=== PATIENT | male | born 1950 | race Caucasian/White ===

== ENCOUNTER → 2018-04-24 14:48 | Outpatient (CLI) | payer OTHER, SELFPAY ==
--- NOTE | 2018-04-24 14:58 | MRI_ITS ---
STUDY: MRI BRAIN WITH AND WITHOUT CONTRAST (ATTENTION INTERNAL AUDITORY CANALS - I.A.C.'s) REASON FOR EXAM: Male, 68 years old. ATAXIA, L HEARING LOSS OVER FEW YEARS. TECHNIQUE: Standardized multiplanar fat and water weighted pulse sequences were obtained. Gadavist 9 IV was administered for the contrast portion of the examination. COMPARISON: None. FINDINGS: Normal bilateral temporal bones. Normal bilateral internal auditory canals. There is no demonstrated intracanalicular or cisternal vestibular schwannoma (acoustic neuroma). There is no enhancement of the bilateral VIIth or VIIIth cranial nerves. Normal bilateral cochlea, vestibules and semicircular canals. Normal size of the ventricles and extra-axial spaces for the patient's age. Normal white matter tracts of the supratentorial brain. Normal bilateral basal ganglia. Normal thalami. Normal flow voids within the major intracranial circulation suggesting patency by spin echo criteria. Normal venous enhancement. There is no enhancing intra-axial or extra-axial abnormality. There is no extra-axial fluid accumulation. Normal sella turcica, pituitary gland, infundibular stalk, optic chiasm and hypothalamus. Normal tectal plate and pineal gland. Normal midbrain, vijaya and medulla. Normal cerebellum. Normal basal cisterns. No demonstrated orbital abnormality, within the constraints of a routine brain study. Normal visualized paranasal sinuses. Normal calvarium and skull base. Normal visualized soft tissue structures. Normal visualized upper cervical spine. MRI/Brain W/WO Contrast IMPRESSION: Unremarkable unenhanced and enhanced MRI of the bilateral internal auditory canals (I.A.C's). Electronically Signed: Mary Ann Lewis MD at 9:33 EST Tel , Service support ,
[2018-04-24 15:56] LABS: CREATININE FINGERSTICK 1.1 mg/dL (0.70-1.30); EGFR FINGERSTICK > 60.0000 mL/min (>60)
== END ==
PROVIDERS: Family Provider Internal Medicine; PCP Internal Medicine; Referring Provider Otolaryngology Otolaryngology/Facial Plastic Surgery; Visit Provider Otolaryngology Otolaryngology/Facial Plastic Surgery
DX: R27.0 Ataxia, unspecified (principal); H93.19 Tinnitus, unspecified ear; H91.92 Unspecified hearing loss, left ear
CPT/HCPCS: 70553; A9585

== ENCOUNTER 2019-07-26 23:33 | Observation (INO) | payer OTHER, SELFPAY ==
[2019-07-26 23:34] VITALS: BP 131/63; PULSE 84; RESP 16; TEMP 36.6; O2SAT 96; BMI 26.7
[2019-07-27] VITALS (8 sets, daily range): BP systolic 122–135; BP diastolic 81–93; PULSE 71–84; RESP 18; TEMP 36.7–36.9; O2SAT 90–96; BMI 26.4
--- NOTE | 2019-07-27 | RAD_ITS ---
STUDY: X-RAY - UNILATERAL RIBS ( RIGHT ) WITH CHEST REASON FOR EXAM: Male, 69 years old. NKI -- C/O OF KNOT BELOW RT SCAPULA THAT MAKES HIM UNABLE TO TAKE IN A DEEP BREATH WITHOUT PAIN TECHNIQUE - RIBS: 4 view(s) of the ribs. TECHNIQUE - CHEST: Single frontal view of the chest. COMPARISON: None. FINDINGS - RIBS: Normal visualized ribs without a demonstrated fracture. FINDINGS - CHEST: Bilateral basilar interstitial prominence somewhat pleural-based in the right base possible atelectasis in the right base, retrocardiac density likely moderate to large hiatal hernia. There is no demonstrated pleural abnormality. Normal size heart. Normal mediastinum and german. Normal visualized pulmonary arteries. There is atherosclerosis of the aortic arch. There is a levoscoliosis of the upper thoracic spine. Normal visualized ribs, clavicles, and shoulders. There is no demonstrated abnormality of the visualized soft tissue structures of the upper abdomen. RAD/Ribs Uni Min 3V w/PA Chest IMPRESSION: RIBS: Normal x-ray examination of the ribs. CHEST: Interstitial disease in the lung bases, possible chronic, component of atelectasis suspected. Follow-up examination to assess for resolution of pleural-based airspace disease in the right base is recommended which then wouldn''t drink any need for cross-sectional imaging if not achieved. An inflammatory process is not excluded. This may cause patient''s symptoms. Moderate to large sized hiatal hernia. Electronically Signed: Brina Moore MD at 0:30 EDT , Service support ,
--- NOTE | 2019-07-27 00:07 | ED.VISSUMM ---
- ER Visit Summary Date of Service: 07/27/19 Chief Complaint: Back pain History of Present Illness: The patient is a 69 M presenting with right upper back pain. 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 This involved a lot of movement with his right upper extremity. He states he is very active typically but this was more work than usual. He has pain when he takes a deep breath and with movements. He denies chest pain or shortness of breath. Denies PE/DVT risk factors. Denies other complaints. Physical Examination: Vitals are stable. Patient is afebrile. Alert no acute distress. HEENT exam is unremarkable. Neck is supple. Lungs are clear and equal bilaterally. Heart is regular rate and rhythm. Abdomen is soft nontender nondistended. Back right posterior rib tenderness below scapula. No crepitus. Extremities are unremarkable. Skin is warm and dry. No focal neurologic deficit. Remainder of exam is unremarkable. Emergency Department Course and Treatment: Patient was given Norflex, Toradol IM. Right rib series shows RIBS: Normal x-ray examination of the ribs. CHEST: Interstitial disease in the lung bases, possible chronic, component of atelectasis suspected. Follow-up examination to assess for resolution of pleural-based airspace disease in the right base is recommended. D dimer 2.39. CTA chest was ordered and is pending. Patient is feeling improved on reevaluation. He will be sent home with Flexeril if his CTA is negative. He will follow-up with his primary care physician. Disposition: pending Impression: Acute back pain This note was generated with [employer] dictation software. It may contain incorrect words, spelling, and punctuation that were not noted in review of the chart prior to signing ED Disposition - Plan for ED Patient: Instructions: ED Back Pain Acute or Chronic Prescriptions: cycloBENZAPRine HCl [Flexeril] 10 mg PO TID PRN #20 tab PRN Reason: Muscle Spasm Prescription Printed Referrals: Wade Lindquist MD [Primary Care Provider] -
[2019-07-27] MEDS: Ketorolac 30 MG/ML Syringe IM (00:19)
[2019-07-27] MEDS: Orphenadrine 60 MG/2 ML Ampul IM (00:20)
--- NOTE | 2019-07-27 00:40 | ED.DEP ---
ED Disposition - Plan for ED Patient: Instructions: ED Back Pain Acute or Chronic Prescriptions: cycloBENZAPRine HCl [Flexeril] 10 mg PO TID PRN #20 tablet PRN Reason: Muscle Spasm Referrals: Wade Lindquist MD [Primary Care Provider] -
[2019-07-27 00:44] LABS: D-Dimer Quantitative (DVT/PE) 2.39 FEU/ug/m (0.27-0.49)
--- NOTE | 2019-07-27 00:45 | ED.RN ---
dr mckee notified of the pts ddimer 2.39
--- NOTE | 2019-07-27 00:49 | CT_ITS ---
We are attempting to reach an attending provider to discuss findings. An addendum with communication details will be sent when the communication is complete. STUDY: CTA CHEST REASON FOR EXAM: Male, 69 years old. SHARP PAIN IN RT BACK AND RIBS/E LEV DDIMER RADIATION DOSAGE (If Supplied By Facility): CTDIvol = ( 12.18 ) mGy, DLP = ( 463.15 ) mGycm TECHNIQUE: The examination was performed with the intravenous administration of Isovue 370 100ml. Post-processing of the angiographic images was performed, with multiplanar reformation and 3D reconstruction. Individualized dose optimization techniques were used for this CT. COMPARISON: Right rib series 07/27/2019 FINDINGS: Filling defects in the right pulmonary artery predominantly involving the right middle lobe and less lower lobe pulmonary artery which is mostly occlusive to the right middle lobe. Nonocclusive filling defects within the left inferior pulmonary artery. There is no demonstrated pulmonary embolism. Normal thoracic aorta and visualized great vessels. There is no demonstrated aortic dissection. Normal heart and pericardium. There are calcifications of the coronary arteries. Left ventricular wall appears thickened. Mild contrast reflux into the inferior vena cava which appears dilated at the radial right atrial confluence with heterogeneous enhancement. Normal mediastinum. Normal hilar regions. Normal visualized trachea and bronchi. The lungs are well expanded. Hazy peripheral airspace disease in the right middle lobe, linear changes in the right upper lobe just superior to the minor fissure, in the right lower lobe likely atelectasis with mild airspace opacification in the right lower lobe superior segment adjacent to the fissure and is along the dependent right lower lobe. Hazy airspace disease in the left lower lobe adjacent to the large hiatal hernia and lung periphery superior segment. Indistinct protocol contour and trace pleural fluid in the lung bases.. Normal chest wall structures. There are degenerative changes of thoracic spine. There is a large hiatal hernia composed mostly of the fundus of the stomach. There are colonic diverticula. CT/CTA Chest W/WO Contrast IMPRESSION: The lateral pulmonary emboli, most pronounced in the right middle lobe which is mostly occlusive. There is volume loss with peripheral airspace disease in the right middle lobe, less right and left lower lobe. Infarction may be present. Heterogeneous enhancement of the dilated inferior vena cava, this may be due to mixing of contrast. Further assessment to exclude thrombus recommended. Coronary artery disease. Mild left ventricular wall thickening. Large hiatal hernia. No thoracic aortic aneurysm, dissection or leak. Other nonacute findings as outlined above. Electronically Signed: Brina Moore MD at 2:00 EDT , Service support ,
[2019-07-27 01:38] LABS: International Normalized Ratio 1.1; Partial Thromboplast Time 28.7 Seconds (24.1-36.2); Prothrombin Time (Protime)PT. 13.7 SECONDS (11.7-14.9)
[2019-07-27 01:59] LABS: Hematocrit 39.4 % (40-54); Mean Corpuscular Hgb 31.6 pg (27.0-32.0); Mean Corpuscular Volume 95.6 fL (80-94); Mean Platelet Vol. 9.9 fl (6.2-12.0); Platelet Count 193 K/mm3 (150-450); RBC Distribution Width CV 18.5 % (11.6-14.6); RBC Distribution Width SD 64.2 fl (35.1-43.9); Red Blood Count 4.12 M/mm3 (4.6-6.2); White Blood Count 6.9 K/mm3 (4.4-11.0)
[2019-07-27 02:01] LABS: Scan Indicated on CBC? Y/N NO
[2019-07-27 02:12] LABS: Anion Gap 6 (5-15); BUN 27 mg/dL (7-18); BUN/Creat Ratio 32.2 RATIO (10-20); Calcium,Total 8.1 mg/dL (8.5-10.1); Chloride 110 mmol/L (98-107); Creatinine, Serum 0.84 mg/dL (0.70-1.30); EST Glomerular Filtration Rate 97 mL/min (>60); Est Glom Filt Rate - Afr Amer 117 mL/min (>60); Estimated Creatinine Clearance 90.89 ml/min; Glucose 111 mg/dL (74-106); Sodium Level 139 mmol/L (136-145)
--- NOTE | 2019-07-27 02:13 | EKG12_ITS ---
Test Reason : DYSRHYTHMIA Blood Pressure : / mmHG Vent. Rate : 073 BPM Atrial Rate : 073 BPM P-R Int : 170 ms QRS Dur : 098 ms QT Int : 426 ms P-R-T Axes : 009 -11 003 degrees QTc Int : 469 ms Normal sinus rhythm Normal ECG Confirmed by CESAR MONROY MD ([id number]), newspaper or periodical editor RAFAEL CHÁVEZ ([id number]) on 07/28/2019 9:13:33 AM Referred By: DANIEL Confirmed By:CESAR MONROY MD
--- NOTE | 2019-07-27 02:25 | ED.RN ---
NO OLD EKGS IN MUSE
[2019-07-27] MEDS: Enoxaparin 100 MG/ML Syringe 90 MG SC (02:47)
--- NOTE | 2019-07-27 02:50 | PCM.HP.STD ---
Problem List (1) Pulmonary embolism Status: Acute Qualifiers: Chronicity: acute History of Present Illness Date of Admission: 07/27/19 Chief Complaint: acute back pain The patient is a 69 year old male patient with no significant past medical history presents the emergency room with acute back pain. 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 The pain started to get worse and he associated it was increasing shortness of breath. No fevers or chills no nausea vomiting or diarrhea. The patient denies history of blood clot. D-dimer was markedly elevated therefore CTA chest was done and found to have substantial area of the right middle lobe pulmonary embolism and could not rule out infarction. This blood clot was unprovoked, the patient has no previous diagnosis of DVT or cancer, or hypercoagulable state. The patient denies any sedentary activity such as prolonged car ride or airplane ride. He is a non-smoker. He will be admitted to PCU for overnight monitoring and pain control. Past Medical History Allergies No Known Allergies Allergy (Verified 07/26/19 23:35) Home Medications: Ambulatory Orders Medication Instructions Recorded Escitalopram Oxalate [Lexapro] 10 mg PO DAILY 07/26/19 Ferrous Gluconate [Iron] 240 mg PO DAILY 07/26/19 Multivitamin with Minerals 1 ea PO DAILY 07/26/19 [Multiple Vitamin] cycloBENZAPRine HCl [Flexeril] 10 mg PO TID PRN #20 tab 07/27/19 Smoking Status: Never smoker - *Family History Maternal History Items: No pertinent history Review of Systems Constitutional: Denies: Chills, Fever, Weight Change HEENT: Denies: Head Aches, Sinus Congestion, Sinus Drainage Cardiovascular: Denies: Chest Pain, Palpitations Respiratory: Reports: Shortness of Breath. Denies: Cough, Sputum production Gastrointestinal: Denies: Abdominal Pain, Nausea, Vomiting Genitourinary: Denies: Dysuria Musculoskeletal: Reports: Back Pain. Denies: Joint Pain, Joint Tenderness Skin: Denies: Rash, Wounds Neurological: Denies: Numbness, Tingling, Focal weakness Psychiatric: Denies: Anxiety, Depression, Homicidal Ideations, Suicidal Ideations Hematologic/ Lymphatic: Denies: Easy Bruising, Easy Bleeding VTE Information - Inpt Only VTE Present on Admission: Yes VTE Mechan Device Prophylaxis: None VTE Pharm Prophylaxis ordered?: Yes Patient Problems: Active and Suspected Problems Pulmonary embolism (Acute) - Physical Exam Vitals/I&O's: Vital Signs Temp Pulse Resp BP Pulse Ox 97.8 F 84 16 131/63 H 96 07/26/19 23:34 07/26/19 23:34 07/26/19 23:34 07/26/19 23:34 07/26/19 23:34 Oxygen Delivery Method Room Air Weight: 191 lb 9.307 oz Body Mass Index (BMI) 26.7 General: Alert, Oriented x3, Cooperative HEENT: Atraumatic, Normocephalic Neck: Supple Lungs: Clear to auscultation, Normal air movement Cardiovascular: Regular rate, Normal S1, Normal S2, No murmurs Abdomen: Bowel Sounds Present Extremities: No edema, - - neg homans test Skin: No rashes Musculoskeletal: No Tenderness to Palpation of Joints or Extremities Neurological: Neuro grossly intact Psych/Mental Status: Normal Affect, Appropriate Laboratory Results 07/27/19 00:23: D-Dimer Quant (PE/DVT) 2.39 H* 07/27/19 00:23: PT 13.7, INR 1.1, APTT 28.7 07/27/19 01:30: WBC 6.9, RBC 4.12 L, Hgb 13.0, Hct 39.4 L, MCV 95.6 H, MCH 31.6, MCHC 33.0, RDW Std Deviation 64.2 H, RDW Coeff of Kit 18.5 H, Plt Count 193, MPV 9.9 07/27/19 01:30: Sodium 139, Potassium 4.0, Chloride 110 H, Carbon Dioxide 23.0, Anion Gap 6, BUN 27 H, Creatinine 0.84, Estim Creat Clear Calc 90.89, Est GFR (MDRD) Af Amer 117, Est GFR (MDRD) Non-Af 97, BUN/Creatinine Ratio 32.2 H, Glucose 111 H, Calcium 8.1 L 07/27/19 02:30: Protein C Antigen Pending, Functional Protein C Pending, Prot C Funct Activity Pending, Antithrombin III Ag Pending, Func Antithrombin III Pending, Factor V Leiden Mutat Pending, Beta-2-GPI IgG Ab Pending, Beta-2-GPI IgA Ab Pending, Beta-2-GPI IgM Ab Pending, Anti-Cardiolipin IgG Ab Pending, Anti-Cardiolipin IgM Ab Pending, Factor II DNA Analysis Pending Assessment/Plan All Active Problems Pulmonary embolism (Acute) Plan 1. Acute pulmonary embolism/possible infarction of lung tissue?patient is stable with an pulse ox saturation of 96% and is not currently in respiratory distress. Oxygen will be used per protocol as needed. The patient was given a dose of Lovenox 1 mg/kg in the emergency room and I will order Eliquis 5 mg p.o. twice daily. A hypercoagulable work-up was initiated in the emergency room to look for underlying cause of this pulmonary embolism that seems to be unprovoked. I did discuss with the patient the possible causes of pulmonary embolism including sedentary lifestyle, hypercoagulable states, cancer. The patient will be given morphine as needed for his pain. If the pain is controlled and his breathing status remains stable perhaps he may be discharged later to continue the rest of the work-up as an outpatient. 2. DVT T prophylaxis?patient already has pulmonary embolism and is starting anticoagulation at this time OBSV E&M: [id number] Initial observation care L2
[2019-07-27] MEDS: Acetaminophen 325 MG Tablet 650 MG PO (05:43)
[2019-07-27] MEDS: APIXABAN 5 MG TABLET PO ×2 (10:11→12:53)
[2019-07-27] MEDS: Multivitamins,Ther W-Minerals Tablet 1 TABLET PO (10:12)
[2019-07-27] MEDS: Escitalopram Oxalate 10 MG Tablet PO (10:12)
[2019-07-27] MEDS: Ferrous Gluconate 324 MG Tablet 325 MG PO (10:12)
--- NOTE | 2019-07-27 11:46 | CASEMGMT ---
Addendum entered by Senia Dillard 07/27/19 12:53: Call to the pharmacist at [facility] pharmacy and she states that pt's co-pay for Eliquis is $164.03, which most likely is partly deductible per pharmacist. Pt updated and provided with Eliquis co-pay card at this time, voices understanding. Pt voices no further questions/concerns/needs at this time. Abi GUPTA CM Original Note: Pt to be sent home on Eliquis at discharge. Pharmacy entered for pt at this time and med to be e-scribed to [facility] [place], then this CANDY BRUSH to call and check coverage/co-pay. Abi GUPTA CM
--- NOTE | 2019-07-27 12:01 | PCM.DC ---
- Discharge Diagnoses Current Active Problems: Current Active and Chronic Problems Pulmonary embolism (Acute) You will use the following diet at home:: No restrictions Discharge Activity: Return to Normal Activity Call your doctor if you observe: Shortness of breath, Dizziness, Fainting spells, Chest pain Instructions: ED Back Pain Acute or Chronic Allergies/Adverse Reactions: Allergies No Known Allergies Allergy (Verified 07/26/19 23:35) Medications to take at Discharge Escitalopram Oxalate [Lexapro] 10 mg PO DAILY 07/26/19 Ferrous Gluconate [Iron] 240 mg PO DAILY 07/26/19 Multivitamin with Minerals [Multiple Vitamin] 1 ea PO DAILY 07/26/19 Apixaban [Eliquis] 10 mg PO BID #70 tab 07/27/19 The following prescriptions were given: Apixaban [Eliquis] 10 mg PO BID #70 tab Transmission Status: Pending to [facility]/pharmacy #[id number] Primary Care Physician: Wade Lindquist MD [Primary Care Provider] - Please follow up with your Primary Care Physician in: 3-5 days Test Results: Test results from this visit will be discussed in further detail at your follow-up appointment, if applicable. Proposed Discharge Date: 07/27/19
--- NOTE | 2019-07-27 12:01 | PCM.DC.SUM ---
<Martha Ellis - Last Filed: 07/27/19 12:08> Discharge Date and Diagnosis Date of Admission: 07/27/19 Date of Discharge: 07/27/19 - Primary Discharge Diagnosis Acute Problems: Active Problems 1. Acute pulmonary embolism 2. Depression Hospital Course and Treatment Imaging Results: Diagnostic Data Ribs w/Chest X-Ray 07/27/19 00:00 IMPRESSION: RIBS: Normal x-ray examination of the ribs. CHEST: Interstitial disease in the lung bases, possible chronic, component of atelectasis suspected. Follow-up examination to assess for resolution of pleural-based airspace disease in the right base is recommended which then wouldn''t drink any need for cross-sectional imaging if not achieved. An inflammatory process is not excluded. This may cause patient''s symptoms. Moderate to large sized hiatal hernia. Electronically Signed: Brina Moore MD at 0:30 EDT , Service support , Chest CTA 07/27/19 00:49 IMPRESSION: The lateral pulmonary emboli, most pronounced in the right middle lobe which is mostly occlusive. There is volume loss with peripheral airspace disease in the right middle lobe, less right and left lower lobe. Infarction may be present. Heterogeneous enhancement of the dilated inferior vena cava, this may be due to mixing of contrast. Further assessment to exclude thrombus recommended. Coronary artery disease. Mild left ventricular wall thickening. Large hiatal hernia. No thoracic aortic aneurysm, dissection or leak. Other nonacute findings as outlined above. Electronically Signed: Brina Moore MD at 2:00 EDT , Service support , ADDENDUM: 07/27/19 0303 IMPRESSION: The lateral pulmonary emboli, most pronounced in the right middle lobe which is mostly occlusive. There is volume loss with peripheral airspace disease in the right middle lobe, less right and left lower lobe. Infarction may be present. Heterogeneous enhancement of the dilated inferior vena cava, this may be due to mixing of contrast. Further assessment to exclude thrombus recommended. Coronary artery disease. Mild left ventricular wall thickening. Large hiatal hernia. No thoracic aortic aneurysm, dissection or leak. Other nonacute findings as outlined above. N.B. : The above information has been verbally conveyed by Brina Moore MD to Dr. Eleno MD, on 07/27/2019 02:56:03 (ET). Electronically Signed: Brina Moore MD at 2:00 EDT , Service support , Operations: None Procedures: None Summary of Care Provided: The patient is a 69 year old M admitted 07/27/2019 due to back pain and shortness of breath. 1. Acute pulmonary embolism-CTA on admission shows lateral pulmonary emboli, most pronounced in the right middle lobe. Volume loss with peripheral airspace disease in the right middle lobe. Patient has no risk factors for DVT/PE. Hypercoagulable panel completed in the emergency room, pending. Oxygen stable on room air. Initiated on Eliquis, he will take 10 mg twice daily for 7 days followed by 5 mg twice daily. Follow-up with primary care physician in 3 to 5 days. 2. Depression- continue lexapro regimen. Patient seen and examined prior to discharge. Physical assessment as noted below. Patient is stable for discharge with follow up recommendations as noted above. This patient was seen by NONI Nelson under the supervision of Dr. Ardon. - Physical Exam Vitals/I&O's: Vital Signs Temp Pulse Resp BP Pulse Ox 98.4 F 72 18 122/81 H 96 07/27/19 09:45 07/27/19 11:36 07/27/19 09:45 07/27/19 09:45 07/27/19 09:45 Oxygen Delivery Method Room Air Weight: 189 lb 9.561 oz Body Mass Index (BMI) 26.4 Intake and Output for Last 24 Hours 07/25/19 07/26/19 07/27/19 23:59 23:59 23:59 Output Total 200 / 200 Balance -200 / -200 Laboratory Results 07/27/19 00:23: D-Dimer Quant (PE/DVT) 2.39 H* 07/27/19 00:23: PT 13.7, INR 1.1, APTT 28.7 07/27/19 01:30: WBC 6.9, RBC 4.12 L, Hgb 13.0, Hct 39.4 L, MCV 95.6 H, MCH 31.6, MCHC 33.0, RDW Std Deviation 64.2 H, RDW Coeff of Kit 18.5 H, Plt Count 193, MPV 9.9 07/27/19 01:30: Sodium 139, Potassium 4.0, Chloride 110 H, Carbon Dioxide 23.0, Anion Gap 6, BUN 27 H, Creatinine 0.84, Estim Creat Clear Calc 90.89, Est GFR (MDRD) Af Amer 117, Est GFR (MDRD) Non-Af 97, BUN/Creatinine Ratio 32.2 H, Glucose 111 H, Calcium 8.1 L 07/27/19 02:30: Protein C Antigen Pending, Functional Protein C Pending, Prot C Funct Activity Pending, Antithrombin III Ag Pending, Func Antithrombin III Pending, Factor V Leiden Mutat Pending, Beta-2-GPI IgG Ab Pending, Beta-2-GPI IgA Ab Pending, Beta-2-GPI IgM Ab Pending, Anti-Cardiolipin IgG Ab Pending, Anti-Cardiolipin IgM Ab Pending, Factor II DNA Analysis Pending Current Medications Acetaminophen (Tylenol) 650 mg PO Q6H PRN PRN PRN Reason: Pain Score 1-10/Temp > 100.7 F Last Admin: 07/27/19 05:43 Dose: 650 mg Documented by: Apixaban (Eliquis) 5 mg PO BID [facility] Last Admin: 07/27/19 10:11 Dose: 5 mg Documented by: Escitalopram Oxalate (Lexapro) 10 mg PO DAILY [facility] Last Admin: 07/27/19 10:12 Dose: 10 mg Documented by: Ferrous Gluconate (Ferrous Gluconate) 325 mg PO DAILY [facility] Last Admin: 07/27/19 10:12 Dose: 325 mg Documented by: Morphine Sulfate () 4 mg IV Q3H PRN PRN PRN Reason: Pain Score 6-10/10 Multivitamins/Minerals (Multivitamin With Minerals (Bkc)) 1 tablet PO DAILY@0800 [facility] Last Admin: 07/27/19 10:12 Dose: 1 tablet Documented by: Ondansetron HCl (Zofran) 4 mg IV Q8H PRN PRN PRN Reason: NAUSEA/VOMITING Oxycodone HCl (Oxyir) 10 mg PO Q4H PRN PRN PRN Reason: Pain Score 4-5/10 Sodium Chloride () 10 - 40 ml IV UD PRN PRN Reason: SALINE FLUSH Discharge Diet: No Restrictions Discharge Activity: Return to Normal Activity Call your doctor if you observe: Shortness of breath, Dizziness, Fainting spells, Chest pain Home Medications: Medications to take at Discharge RX: Escitalopram Oxalate [Lexapro] 10 mg PO DAILY 07/26/19 RX: Ferrous Gluconate [Iron] 240 mg PO DAILY 07/26/19 RX: Multivitamin with Minerals [Multiple Vitamin] 1 ea PO DAILY 07/26/19 RX: Apixaban [Eliquis] 10 mg PO BID #70 tab 07/27/19 Following Prescrptions Were Given to Patient: RX: Apixaban [Eliquis] 10 mg PO BID #70 tab Transmission Status: Received by [id number] Primary Care Physician: Wade Lindquist MD [Primary Care Provider] - Please follow up with your Primary Care Physician in: 3-5 days Patient Instructions: ED Back Pain Acute or Chronic Disposition: Home Minutes spent on discharge:: 35 Patient Condition:: Stable Medical Necessity - Tobacco Use Smoking Status: Never smoker Tobacco Use: Non-smoker Meaningful Use Info Meaningful Use Diagnoses (Choose all that apply): VTE - VTE Anticoag overlap given w/in hospital stay or rx'd at dc?: Yes Pt receive overlap for 5 days?: Yes <Jana Ardon - Last Filed: 07/27/19 15:23> Hospital Course and Treatment Summary of Care Provided: This patient was seen in conjunction with Martha Ellis NP. I have independently interviewed and examined the patient and reviewed pertinent historical, laboratory, and other data. Please refer to her note for patient's presentation, findings, and recommendations. 69 y/o male with no significant PMHx who comes in acute upper back pain, worse with lifting heavy equipment, associated with worsening shortness of breath. Patient's vitals was stable. D-dimer was 2.39. He underwent CTA chest showed lateral pulmonary emboli most pronounced in the right middle lobe, mostly occlusive with volume loss with peripheral airspace disease. Patient was without oxygen throughout his hospital stay. He was started on therapeutic anticoagulation. Discharged on Eliquis. He was encouraged to use his incentive spirometer. On the day of discharge, patient was seen and examined. He feels well. He denied any complains, occasional pleuritic chest pain. Hypercoagulable workup lab was pending at the time of discharge. Physical Exam: Gen: Looks in some discomfort, not pale, not jaundiced, alert oriented x3 CVS:HS I +II, regular, no murmurs RESP: Diminished at lung bases GI: BS present and normal, nontender, no palpable organs EXT:No edema - Physical Exam Vitals/I&O's: Vital Signs Temp Pulse Resp BP Pulse Ox 98.4 F 72 18 122/81 H 93 07/27/19 09:45 07/27/19 11:36 07/27/19 09:45 07/27/19 09:45 07/27/19 12:02 Oxygen Delivery Method Room Air Weight: 86 kg Body Mass Index (BMI) 26.4 Intake and Output for Last 24 Hours 07/25/19 07/26/19 07/27/19 23:59 23:59 23:59 Output Total 200 / 200 Balance -200 / -200 Laboratory Results 07/27/19 00:23: D-Dimer Quant (PE/DVT) 2.39 H* 07/27/19 00:23: PT 13.7, INR 1.1, APTT 28.7 07/27/19 01:30: WBC 6.9, RBC 4.12 L, Hgb 13.0, Hct 39.4 L, MCV 95.6 H, MCH 31.6, MCHC 33.0, RDW Std Deviation 64.2 H, RDW Coeff of Kit 18.5 H, Plt Count 193, MPV 9.9 07/27/19 01:30: Sodium 139, Potassium 4.0, Chloride 110 H, Carbon Dioxide 23.0, Anion Gap 6, BUN 27 H, Creatinine 0.84, Estim Creat Clear Calc 90.89, Est GFR (MDRD) Af Amer 117, Est GFR (MDRD) Non-Af 97, BUN/Creatinine Ratio 32.2 H, Glucose 111 H, Calcium 8.1 L 07/27/19 02:30: Protein C Antigen Pending, Functional Protein C Pending, Prot C Funct Activity Pending, Antithrombin III Ag Pending, Func Antithrombin III Pending, Factor V Leiden Mutat Pending, Beta-2-GPI IgG Ab Pending, Beta-2-GPI IgA Ab Pending, Beta-2-GPI IgM Ab Pending, Anti-Cardiolipin IgG Ab Pending, Anti-Cardiolipin IgM Ab Pending, Factor II DNA Analysis Pending OBSV E&M: [id number] Observation care discharge
--- NOTE | 2019-07-27 12:54 | PHA.DC.MC ---
Pharmacy Service has performed discharge medication reconciliation and counseling for this patient. 1. APIXABAN 10MG PO BID X 7 DAYS THEN 5MG PO BID THEREAFTER The patient's discharge medication list was reviewed for discrepancies and discrepancies were resolved. Pt reported taking aspirin 81mg - 2 tablets 3-4 times daily for pain. This PharmD strongly advised against using aspirin for pain and trying acetaminophen to reduce the risk of bleeding. Home Medications Escitalopram Oxalate [Lexapro] 10 mg PO DAILY 07/26/19 Ferrous Gluconate [Iron] 240 mg PO DAILY 07/26/19 Multivitamin with Minerals [Multiple Vitamin] 1 ea PO DAILY 07/26/19 Apixaban [Eliquis] 10 mg PO BID #70 tab 07/27/19 The patient was counseled on the following discharge medications and changes in medications for homegoing were reviewed. The Reason for Use, instructions for use, and potential side effects were reviewed for all new medications. The patient's questions regarding all of their medications were answered. The patient was able to verbally demonstrate an understanding of their discharge medications.
[2019-08-04 14:08] LABS: Protein C Antigen 81 % (60-150); Protein C, Functional 87 % (73-180)
[2019-08-05 01:07] LABS: Anti-Cardiolipin Ab, IgG, Qn 11 GPL U/mL (0-14); Anti-Cardiolipin Ab, IgM, Qn < 9 MPL U/mL (0-12); Anti-Thrombin 3 AG, Immunol 88 % (72-124); Antithrombin 3 Function 98 % (75-135)
[2019-08-05 01:08] LABS: Beta-2-Glycoprotein I IgA <9 (0-25); Beta-2-Glycoprotein I IgG <9 (0-20); Beta-2-Glycoprotein I IgM <9 (0-32)
== END 2019-07-27 12:01 | disposition home or self-care (01) ==
LOC: ED 07-27 00:26 → PCU 07-27 03:12
PROVIDERS: Emergency Medicine; Admitting Provider Family Medicine; Emergency Provider Emergency Medicine; PCP Internal Medicine; Visit Provider Internal Medicine
DX: I26.99 Other pulmonary embolism without acute cor pulmonale (principal); F32.9 Major depressive disorder, single episode, unspecified; Z79.899 Other long term (current) drug therapy
CPT/HCPCS: 71101; 71275; 80048; 81240; 81241; 85027; 85300; 85301; 85302; 85303; 85379; 85610; 85730; 86146; 86147; 93005; 96372; 99218; 99282; Q9967; A4216; G0378

== ENCOUNTER → 2019-08-09 10:45 | Outpatient (CLI) | payer OTHER, SELFPAY ==
[2019-07-27 03:13] VITALS: BMI 26.4
== END ==
PROVIDERS: PCP Internal Medicine; Visit Provider Internal Medicine
DX: R09.1 Pleurisy (principal)
CPT/HCPCS: 87635; G2023; U0003

== ENCOUNTER 2020-04-27 03:57 | Emergency (ER) | payer OTHER, SELFPAY ==
[2019-07-27 03:13] VITALS: BMI 26.4
[2020-04-27 03:59] VITALS: BP 159/100; PULSE 72; RESP 16; TEMP 36.7; O2SAT 95; BMI 26.7
--- NOTE | 2020-04-27 04:03 | RAD_ITS ---
STUDY: X-RAY - CERVICAL SPINE REASON FOR EXAM: Male, 70 years old. neck pain TECHNIQUE: 3 view(s) of the cervical spine were obtained. 4 images COMPARISON: None FINDINGS: Normal anterior atlantoaxial articulation. Normal odontoid process. Normal cervical lordosis. There is multi-level endplate spondylosis. There is multi-level degenerative disc disease with multilevel disc space narrowing. Retrolisthesis C3 on C4 by 1 to 2 mm. Mild posterior spurring C3-4, C5-C6. The soft tissue structures are unremarkable. RAD/Cerv Spine 2 or 3 Views IMPRESSION: Degenerative changes. Grade 1 retrolisthesis C3 on C4. Mild posterior spurring. This could cause neural foraminal narrowing. No compression injuries. Electronically Signed: Brina Moore MD at 4:51 EST , Service support ,
--- NOTE | 2020-04-27 04:04 | ED.DCSUM_ITS ---
- ER Visit Summary Date of Service: 04/27/20 Chief Complaint: Neck pain History of Present Illness: The patient is a 70 M who presents with neck pain. He woke up with this 3 days ago. Pain is on the bilateral parts of the neck. Pain is worse with movement. He states this morning it got significantly worse. He states that it radiates up into his head and to his shoulders. But these areas are aching. He denies having any neck surgeries in the past. He has been taking Anacin at home without any relief. He has no prior history of this. Physical Examination: Vital signs are reviewed. HEENT exam is unremarkable. Neck exam reveals no adenopathy. His cervical spine is nontender in the midline. He has bilateral upper paraspinal cervical tenderness. He has decreased range of motion secondary to pain. His neurologic exam is normal. He has 5 out of 5 strength in his upper extremities. He ambulates normally. The skin has no changes. Test Results: Cervical spine x-rays reveal degenerative changes. Emergency Department Course and Treatment: The patient was given Carpenter and Flexeril. Upon reevaluation he is getting some improvement. I feel like this is muscular in nature. He has no midline tenderness. The pain started when he woke up a couple of days ago and this likely leans towards muscular. I will give him a short course of Carpenter and some Flexeril for home. He will use ice and heat and follow-up with his PCP. Treatment Plan: [] Disposition: Discharge Impression: Cervical strain This note was generated with [employer] dictation software. It may contain incorrect words, spelling, and punctuation that were not noted in review of the chart prior to signing ED Disposition - Plan for ED Patient: Disposition: Home or Assisted Living Instructions: ED Neck Sprain or Strain Prescriptions: cycloBENZAPRine HCl [Flexeril] 10 mg PO TID PRN #20 tab PRN Reason: Muscle Spasm Transmission Status: [facility]ending to [id number] Hydrocodone Bitart/Apap 5-325 [Carpenter 5MG-325MG] 1 tablet PO Q6H PRN PRN 3 Days #8 tablet PRN Reason: Pain Transmission Status: Received by [id number] Referrals: Wade Lindquist MD [Primary Care Provider] -
[2020-04-27] MEDS: cycloBENZAPRine HCl 10 MG Tablet PO (04:11)
[2020-04-27] MEDS: HYDROcodone Bitartrate/Apap 5/325 Tablet PO (04:11)
[2020-04-27 05:16] VITALS: RESP 14
== END 2020-04-27 05:16 | disposition home or self-care (01) ==
PROVIDERS: Emergency Provider Emergency Medicine; PCP Internal Medicine
DX: S16.1XXA Strain of muscle, fascia and tendon at neck level, initial encounter (principal); R51.9 Headache, unspecified; X58.XXXA Exposure to other specified factors, initial encounter; Y93.9 Activity, unspecified; Y92.9 Unspecified place or not applicable; Y99.9 Unspecified external cause status; F32.9 Major depressive disorder, single episode, unspecified; Z79.899 Other long term (current) drug therapy
CPT/HCPCS: 72040; 99283